=== PATIENT | male | born 1945 | race Caucasian/White ===

== ENCOUNTER → 2016-05-03 | Day surgery (SDC) | payer MEDICARE, BC ==
[~2016-05-03] MED LIST: ACETAMINOPHEN/HYDROcodone 325 MG/5 MG TAB ONE; ASPI81; ATEN1TAB74; BUPIVACAINE/EPINEPHRINE 0.5% 50 ML VIAL ONE; LACTATED RINGER'S 1000 ML INJ 1,000 ML ONE; MIDAZOLAM HCL 2 MG/2 ML VIAL ONE; NIAS10004; ONDANSETRON HCL 4 MG/2 ML VIAL IV PUSH ONE; PROPOFOL 200 MG/20 ML AMP IV ONE; VYTO10TA35; ceFAZolin 2 GM PREMIX 50 ML ONE
--- NOTE | 2016-05-06 23:31 | MP ---
cc: BRIANNE ASH M.D. DATE OF SURGERY 05/03/2016 PREOPERATIVE DIAGNOSIS Right knee medial meniscus tear. POSTOPERATIVE DIAGNOSIS Right knee medial meniscus tear. PROCEDURE Right knee arthroscopic partial medial meniscectomy. ANESTHESIA General SURGEON Matthew Ash MD ESTIMATED BLOOD LOSS Minimum COMPLICATIONS None known. INDICATIONS Sonny Salazar is a 70-year-old male with debilitating right knee pain. Workup reveals some arthritic change patellofemoral joint and unstable tear involving the posterior horn of the medial meniscus as well as chondromalacia of the medial compartment. Risks, benefits thoroughly discussed and a detail informed consent has been obtained. PROCEDURE IN DETAIL The patient was brought to the operating room and was placed under general anesthetic. The right lower extremity was draped and prepped in usual sterile fashion. IV antibiotics were given. Time-out was completed. Marcaine injected about inferolateral portal and then incision made and blunt trocar used to introduce the cannula. Effusion was noted. The knee was insufflated. Patellofemoral joint showed some chondromalacia superiorly. Notch showed normal-appearing ACL. Lateral compartment showed some mild calcifications. Throughout the knee, we saw several small particulate cartilage floating around. The medial compartment showed some delaminated cartilage on the weightbearing portion of the medial femoral condyle and highly unstable meniscus tear involving the posterior horn and body of the medial meniscus involving 40% of the depth and a substantial amount underneath the meniscus as well. We made our medial based portal, proceeded with arthroscopic partial medial meniscectomy and used a combination of basket forceps and arthroscopic shaver. We gently smoothed and fine-tuned the weightbearing portion of the medial femoral condyle as well. We switched over switching to stick to contour and smooth the transition from the anterior horn of the body to the posterior horn. Follow-up photograph shows the results. Gentle chondroplasty of the patellofemoral joint. We were very meticulous on hemostasis and open electrocautery to further promote this, because he is on blood thinner. We had very good hemostasis. Repeat diagnostic arthroscopy revealed no loose bodies. Arthroscopic equipment was removed. Marcaine injected. Steri-Strips applied. Sterile dressing applied. The patient was awaken and returned to recovery room in stable condition. MD DIA Walton/ /3:55 PM /11:22 PM
== END | disposition home or self-care (01) ==
LOC: ESDC 11:49
PROVIDERS: ATTEND Orthopaedic Surgery Sports Medicine
DX: S83.241A Other tear of medial meniscus, current injury, right knee, initial encounter (principal); M94.261 Chondromalacia, right knee
CPT/HCPCS: 01400; 29881; J0690; J2250; J2405; J3010; J7120